=== PATIENT | female | born 1950 | race Caucasian/White ===

== ENCOUNTER 2017-02-08 09:20 | Outpatient (CLI) | payer MEDICARE, OTHER ==
[2017-02-08 12:30] LABS: BASOPHILS % (AUTO) 1.1 %; EOSINOPHILS # (AUTO) 0.1 10^3/uL (0.0-0.7); EOSINOPHILS % (AUTO) 3.1 %; HGB - HEMOGLOBIN 13.3 g/dL (12.0-16.0); LYMPHOCYTES # (AUTO) 1.6 10^3/uL (1.5-3.5); LYMPHOCYTES % (AUTO) 39.3 %; MEAN CORPUSCULAR HEMOGLOBIN 28.8 pg (27.0-31.0); MEAN CORPUSCULAR HGB CONC 33.3 g/dL (32.0-36.0); MEAN CORPUSCULAR VOLUME 86.7 fL (81.0-99.0); MEAN PLATELET VOLUME 8.8 fL (7.9-10.8); MONOCYTES # (AUTO) 0.3 10^3/uL (0.0-1.0); MONOCYTES % (AUTO) 7.4 %; NEUTROPHILS # (AUTO) 2.1 10^3/uL (1.5-6.6); NEUTROPHILS % (AUTO) 49.1 %; RED BLOOD COUNT 4.61 10^6/uL (4.20-5.40); RED CELL DISTRIBUTION WIDTH 14.8 % (12.0-15.0); UNCORRECTED WHITE BLOOD COUNT 4.2 x10^3/uL; WHITE BLOOD COUNT 4.2 x10^3/uL (4.8-10.8)
[2017-02-08 12:56] LABS: ALBUMIN/GLOBULIN RATIO 1.3 (1.0-2.2); BILIRUBIN,TOTAL 0.5 mg/dL (0.2-1.0); BUN - BLOOD UREA NITROGEN 17 mg/dL (6-20); CARBON DIOXIDE - CO2 31 mmol/L (21-32); CHLORIDE 105 mmol/L (101-111); CHOL/HDL RATIO 2.9 (<4.4); CHOLESTEROL 181 mg/dL; CREATININE 0.5 mg/dL (0.4-1.0); GFR - MDRD 123 (>89); GLUCOSE 92 mg/dL (70-100); HDL CHOLESTEROL 62 mg/dL; LDL/HDL RATIO 1.8 (<4.4); POTASSIUM 3.8 mmol/L (3.5-5.0); SODIUM 139 mmol/L (135-145); TRIGLYCERIDES 49 mg/dL; VLDL CHOLESTEROL 10 mg/dL
== END 2017-02-08 09:21 | disposition home or self-care (01) ==
LOC: LAB.WCP 09:20
PROVIDERS: ATTEND Family Medicine
DX: I10 Essential (primary) hypertension (principal); Z79.899 Other long term (current) drug therapy
CPT/HCPCS: 36415; 80053; 80061; 84443; 85025

== ENCOUNTER → 2017-11-01 | Outpatient (CLI) | payer MEDICARE, OTHER ==
[2017-11-01 19:07] LABS: BILIRUBIN,URINE NEGATIVE (NEGATIVE); GLUCOSE, URINE (UA) NEGATIVE (NEGATIVE); KETONES,URINE (UA) NEGATIVE (NEGATIVE); LEUKOCYTE ESTERASE, URINE NEGATIVE (NEGATIVE); NITRITE,URINE NEGATIVE (NEGATIVE); OCCULT BLOOD,URINE NEGATIVE (NEGATIVE); PH,URINE 5.5 PH (5.0-7.5); PROTEIN,URINE NEGATIVE (NEGATIVE); UROBILINOGEN,URINE 0.2 (NORMAL) E.U./dL (NORMAL)
[2017-11-01 19:12] LABS: CLARITY,URINE CLEAR (CLEAR)
[2017-11-01 19:37] LABS: BACTERIA,URINE None Seen /HPF (None Seen); RBC,URINE None Seen /HPF (0-5); SQUAMOUS EPITHELIAL CELL,UR NONE SEEN (<= Few)
== END ==
LOC: LAB.R 15:08
PROVIDERS: ATTEND Family Medicine
DX: N39.0 Urinary tract infection, site not specified (principal)
CPT/HCPCS: 81001; 87086

== ENCOUNTER 2018-03-02 09:50 | Emergency (ER) | payer MEDICARE, OTHER ==
--- NOTE | 2018-03-02 10:06 | ED Physician Documentation ---
PD HPI ABD PAIN - Stated complaint Stated Complaint: RT SIDE PX - Chief complaint Chief Complaint: Abd Pain - History obtained from History obtained from: Patient - History of Present Illness Timing - onset: Other (For the last week she has had intermittent right flank pain and its usually triggered by position changes or getting up to start to walk. When it happens it lasts for about 5 minutes, it is a nonradiating squeezing pain. Not associated with abdominal pain, new shortness of breath although she has chronic panic attacks or urinary complaints. No fevers.) Review of Systems Constitutional: denies: Fever, Chills GI: denies: Abdominal Pain, Nausea, Vomiting, Diarrhea : denies: Dysuria, Frequency Musculoskeletal: denies: Neck pain PD PAST MEDICAL HISTORY - Allergies Allergies/Adverse Reactions: Allergies Allergy/AdvReac Type Severity Reaction Status Date / Time No Known Drug Allergies Allergy Verified 03/02/18 10:02 PD ED PE NORMAL - Vitals Vital signs reviewed: Yes - General General: Alert and oriented X 3, No acute distress - Cardiac Cardiac: RRR, No murmur - Respiratory Respiratory: No respiratory distress, Clear bilaterally - Abdomen Abdomen: Normal bowel sounds, Soft, Non tender - Back Back: No spinal TTP - Derm Derm: Normal color, No rash - Extremities Extremities: Other (The patient has equal and normal Achilles and patellar reflexes bilaterally. Normal sensation in all areas of the legs. Patient denies saddle anesthesia. Normal strength in flexion-extension at the ankles, knees, and flexion of the hips.) - Neuro Neuro: Alert and oriented X 3, Normal speech Results - Vitals Vitals: Vital Signs - 24 hr 03/02/18 09:56 Temperature 36.7 C Heart Rate 68 Respiratory 14 Rate Blood Pressure 175/91 H O2 Saturation 98 Oxygen O2 Source Room air - Labs Labs: Laboratory Tests 03/02/18 03/02/18 03/02/18 10:37 10:37 10:37 WBC 5.0 RBC 4.75 Hgb 13.6 Hct 40.8 MCV 85.9 MCH 28.7 MCHC 33.4 RDW 14.6 Plt Count 241 MPV 8.0 Neut # (Auto) 2.6 Lymph # (Auto) 1.7 [place] # (Auto) 0.4 Eos # (Auto) 0.2 Baso # (Auto) 0.1 Absolute Nucleated RBC 0.00 Nucleated RBC % 0.1 Sodium 140 Potassium 3.8 Chloride 103 Carbon Dioxide 28 Anion Gap 9.0 BUN 14 Creatinine 0.5 Estimated GFR (MDRD) 123 Glucose 98 Calcium 9.0 Total Bilirubin 0.6 AST 24 ALT 25 Alkaline Phosphatase 93 Total Protein 7.2 Albumin 3.9 Globulin 3.3 Albumin/Globulin Ratio 1.2 Lipase 29 Urine Color YELLOW Urine Clarity CLEAR Urine pH 7.0 Ur Specific [place] <=1.005 Urine Protein NEGATIVE Urine Glucose (UA) NEGATIVE Urine Ketones NEGATIVE Urine Occult Blood TRACE-INTA Urine Nitrite NEGATIVE Urine Bilirubin NEGATIVE Urine Urobilinogen 0.2 (NORMAL) Ur Leukocyte Esterase NEGATIVE Ur Microscopic Review NOT INDICATED Urine Culture Comments NOT INDICATED PD MEDICAL DECISION MAKING - ED course ED course: This is a 67-year-old woman with right flank pain that seems musculoskeletal based on history. She has no physical exam findings. There is some incidental findings on the CT which were discussed with her in follow-up was advised but I do not think either of those are the source of her pain. She declined anything other than Motrin for pain. Departure - Departure Disposition: 01 Home, Self Care Clinical Impression: Right flank pain Condition: Good Record reviewed to determine appropriate education?: Yes Instructions: ED Abdominal Pain Unkn Cause Comments: As discussed, you do have a cyst in your kidney and a gallstone. I do not think either of those is the source of your pain to the area. You follow-up with your physician, they may want to order an ultrasound on your kidney to further assess the cyst but it does not look dangerous or concerning on our scan today. Your blood pressure was elevated today on check into the emergency department. This does not mean that you have hypertension, it is a common phenomenon to come to the emergency department and have elevated blood pressure. I recommend that you see your primary care physician within the week to have it rechecked when you are feeling better.
[2018-03-02 10:47] LABS: BASOPHILS # (AUTO) 0.1 10^3/uL (0.0-0.1); BASOPHILS % (AUTO) 1.4 %; EOSINOPHILS # (AUTO) 0.2 10^3/uL (0.0-0.7); EOSINOPHILS % (AUTO) 4.4 %; HGB - HEMOGLOBIN 13.6 g/dL (12.0-16.0); LYMPHOCYTES # (AUTO) 1.7 10^3/uL (1.5-3.5); LYMPHOCYTES % (AUTO) 33.2 %; MEAN CORPUSCULAR HEMOGLOBIN 28.7 pg (27.0-31.0); MEAN CORPUSCULAR HGB CONC 33.4 g/dL (32.0-36.0); MEAN CORPUSCULAR VOLUME 85.9 fL (81.0-99.0); MONOCYTES # (AUTO) 0.4 10^3/uL (0.0-1.0); NEUTROPHILS # (AUTO) 2.6 10^3/uL (1.5-6.6); PLT - PLATELET COUNT 241 10^3/uL (130-450); RED BLOOD COUNT 4.75 10^6/uL (4.20-5.40); RED CELL DISTRIBUTION WIDTH 14.6 % (12.0-15.0)
[2018-03-02 10:58] LABS: ALBUMIN 3.9 g/dL (3.2-5.5); ALBUMIN/GLOBULIN RATIO 1.2 (1.0-2.2); BILIRUBIN,TOTAL 0.6 mg/dL (0.2-1.0); CREATININE 0.5 mg/dL (0.4-1.0); TOTAL PROTEIN 7.2 g/dL (6.7-8.2)
--- NOTE | 2018-03-02 10:58 | CT Report ---
Reason: R flank pain Procedure Date: 03/02/2018 Accession Number: [id number] / [id number] Procedure: CT - Abdomen/Pelvis W/O CPT Code: FULL RESULT: EXAM: CT ABDOMEN AND PELVIS (CT KUB) EXAM DATE: 03/02/2018 10:27 AM. CLINICAL HISTORY: Right flank pain. COMPARISONS: None. TECHNIQUE: Routine axial helical CT imaging was performed through the abdomen and pelvis without IV contrast. Reconstructions: Coronal and sagittal. In accordance with CT protocol optimization, one or more of the following dose reduction techniques were utilized for this exam: automated exposure control, adjustment of mA and/or KV based on patient size, or use of iterative reconstructive technique. FINDINGS: Lung Bases: Unremarkable. Right Kidney/Ureter: There is a 2 cm exophytic right lower pole hypodense renal lesion, cyst versus angiomyolipoma. No stones, hydronephrosis, or hydroureter. No perinephric fat stranding. Left Kidney/Ureter: No stones, hydronephrosis, or hydroureter. No perinephric fat stranding. Other Solid Organs: Noncontrast images of the solid organs are grossly unremarkable. Gallbladder/Bile Ducts: Unremarkable. Peritoneal Cavity: No free fluid, free air or jl adenopathy. Bowel is grossly unremarkable. The appendix is normal. Pelvic Organs: No bladder stones or wall thickening. Noncontrast images of the visualized pelvic organs are unremarkable. Vasculature: Unremarkable. Other: None. IMPRESSION: No urinary tract stones or obstruction. Recommend retroperitoneal ultrasound of the right kidney on a routine outpatient basis to determine whether the hypodense lesion represents a simple cyst or possibly angiomyolipoma. RADIA
[2018-03-02 11:56] LABS: BILIRUBIN,URINE NEGATIVE (NEGATIVE); CLARITY,URINE CLEAR (CLEAR); GLUCOSE, URINE (UA) NEGATIVE (NEGATIVE); KETONES,URINE (UA) NEGATIVE (NEGATIVE); LEUKOCYTE ESTERASE, URINE NEGATIVE (NEGATIVE); NITRITE,URINE NEGATIVE (NEGATIVE); OCCULT BLOOD,URINE TRACE-INTA (NEGATIVE); PROTEIN,URINE NEGATIVE (NEGATIVE); UROBILINOGEN,URINE 0.2 (NORMAL) E.U./dL (NORMAL)
[2018-03-02 12:05] VITALS: BP 168/88
== END 2018-03-02 12:05 | disposition home or self-care (01) ==
LOC: ED 09:50
DX: R10.31 Right lower quadrant pain (principal); R03.0 Elevated blood-pressure reading, without diagnosis of hypertension
CPT/HCPCS: 36415; 74176; 80053; 81001; 81003; 83690; 85025; 87086; 99282; 99283

== ENCOUNTER 2018-06-13 08:00 | Outpatient (CLI) | payer MEDICARE, OTHER ==
[2018-06-13 12:24] LABS: BASOPHILS # (AUTO) 0.1 10^3/uL (0.0-0.1); BASOPHILS % (AUTO) 1.2 %; EOSINOPHILS # (AUTO) 0.1 10^3/uL (0.0-0.7); EOSINOPHILS % (AUTO) 3.3 %; HGB - HEMOGLOBIN 13.6 g/dL (12.0-16.0); LYMPHOCYTES # (AUTO) 1.4 10^3/uL (1.5-3.5); LYMPHOCYTES % (AUTO) 31.8 %; MEAN CORPUSCULAR HEMOGLOBIN 28.2 pg (27.0-31.0); MEAN CORPUSCULAR HGB CONC 32.8 g/dL (32.0-36.0); MEAN CORPUSCULAR VOLUME 85.9 fL (81.0-99.0); MEAN PLATELET VOLUME 8.7 fL (7.9-10.8); MONOCYTES # (AUTO) 0.3 10^3/uL (0.0-1.0); MONOCYTES % (AUTO) 7.2 %; NEUTROPHILS # (AUTO) 2.5 10^3/uL (1.5-6.6); NEUTROPHILS % (AUTO) 56.5 %; PLT - PLATELET COUNT 213 10^3/uL (130-450); RED BLOOD COUNT 4.84 10^6/uL (4.20-5.40); RED CELL DISTRIBUTION WIDTH 14.8 % (12.0-15.0); WHITE BLOOD COUNT 4.5 x10^3/uL (4.8-10.8)
[2018-06-13 13:12] LABS: ALBUMIN 3.8 g/dL (3.2-5.5); ALBUMIN/GLOBULIN RATIO 1.1 (1.0-2.2); ALKALINE PHOSPHATASE 84 IU/L (42-121); ALT ALANINE AMINOTRANSFERASE 26 IU/L (10-60); AST ASPARTATE AMINOTRANSFERASE 26 IU/L (10-42); BILIRUBIN,TOTAL 0.9 mg/dL (0.2-1.0); BUN - BLOOD UREA NITROGEN 15 mg/dL (6-20); CALCIUM 9.1 mg/dL (8.5-10.3); CARBON DIOXIDE - CO2 29 mmol/L (21-32); CHLORIDE 102 mmol/L (101-111); CHOL/HDL RATIO 2.8 (<4.4); CHOLESTEROL 185 mg/dL; CREATININE 0.5 mg/dL (0.4-1.0); GFR - MDRD 122 (>89); GLUCOSE 100 mg/dL (70-100); HDL CHOLESTEROL 65 mg/dL; LDL CHOLESTEROL,CALCULATED 111 mg/dL; LDL/HDL RATIO 1.7 (<4.4); SODIUM 139 mmol/L (135-145); TOTAL PROTEIN 7.2 g/dL (6.7-8.2); VLDL CHOLESTEROL 9 mg/dL
== END 2018-06-13 23:59 | disposition home or self-care (01) ==
LOC: LAB.WCP 08:00
PROVIDERS: ATTEND Family Medicine
DX: I10 Essential (primary) hypertension (principal); Z79.899 Other long term (current) drug therapy
CPT/HCPCS: 36415; 80053; 80061; 83721; 84443; 85025

== ENCOUNTER 2018-09-29 13:57 | Emergency (ER) | payer MEDICARE, OTHER ==
--- NOTE | 2018-09-29 14:08 | ED Physician Documentation ---
History of Present Illness - Stated complaint Stated Complaint: FACIAL NUMBNESS - Chief complaint Chief Complaint: Heent - History obtained from History obtained from: Patient - Additonal information Additional information: Patient is a 68-year-old female with history of hypertension although noncompliant with lisinopril presenting with upper lip and tip of nose numbness for the past several weeks without inciting incident, trauma, new medication, new exposure. Patient also has a sensation of her teeth feeling numb as if she received Novocain. Patient went to the dentist who reports no dental concerns. Patient denies other skin changes including rash, erythema, swelling, vesicles to the areas of numbness. Patient denies headache, vision changes, other areas of paresthesias or paralysis. Patient denies any pain with the numbness, as well as facial droop or change in speech. No other improving or worsening factors noted. Review of Systems Constitutional: denies: Fever Eyes: denies: Loss of vision Throat: reports: Dental pain / toothache Cardiac: denies: Chest pain / pressure Respiratory: denies: Dyspnea, Cough GI: denies: Abdominal Pain, Nausea, Vomiting, Diarrhea : denies: Dysuria Skin: denies: Rash Neurologic: reports: Numbness. denies: Focal weakness, Difficulty speaking, Headache PD PAST MEDICAL HISTORY - Past Medical History Past Medical History: Yes Cardiovascular: Hypertension - Past Surgical History Past Surgical History: No - Allergies Allergies/Adverse Reactions: Allergies Allergy/AdvReac Type Severity Reaction Status Date / Time No Known Drug Allergies Allergy Verified 09/29/18 14:05 - Social History Does the pt smoke?: No Smoking Status: Never smoker Does the pt drink ETOH?: Yes Does the pt have substance abuse?: No - Immunizations Immunizations are current?: Yes - POLST Patient has POLST: No PD ED PE NORMAL - Vitals Vital signs reviewed: Yes - General General: Alert and oriented X 3, No acute distress, Well developed/nourished - HEENT HEENT: Atraumatic, PERRL, EOMI (No nystagmus. Gross visual acuity intact.), Moist mucous membranes, Pharynx benign, Dentition benign - Neck Neck: Supple, no meningeal sign - Cardiac Cardiac: RRR, No murmur - Respiratory Respiratory: No respiratory distress, Clear bilaterally - Derm Derm: Normal color, Warm and dry, No rash - Extremities Extremities: No deformity, No tenderness to palpate - Neuro Neuro: Alert and oriented X 3, operator supply 2-12 intact, No motor deficit, No sensory deficit, Normal speech - Psych Psych: Normal mood, Normal affect Results - Vitals Vitals: Vital Signs - 24 hr 09/29/18 13:59 Temperature 36.2 C L Heart Rate 84 Respiratory 19 Rate Blood Pressure 159/80 H O2 Saturation 97 Oxygen O2 Source Room air - Labs Labs: Laboratory Tests 09/29/18 09/29/18 14:48 14:48 WBC 4.8 RBC 4.61 Hgb 13.3 Hct 41.1 MCV 89.2 MCH 28.9 MCHC 32.4 RDW 13.4 Plt Count 249 MPV 9.6 Neut # (Auto) 2.5 Lymph # (Auto) 1.6 [place] # (Auto) 0.4 Eos # (Auto) 0.2 Baso # (Auto) 0.0 Absolute Nucleated RBC 0.00 Nucleated RBC % 0.0 Sodium 141 Potassium 3.8 Chloride 101 Carbon Dioxide 29 Anion Gap 11.0 BUN 17 Creatinine 0.6 Estimated GFR (MDRD) 99 Glucose 109 H Calcium 9.1 Total Bilirubin 0.7 AST 23 ALT 21 Alkaline Phosphatase 84 Total Protein 7.1 Albumin 3.7 Globulin 3.4 Albumin/Globulin Ratio 1.1 Lipase 37 PD MEDICAL DECISION MAKING - ED course Complexity details: reviewed results, considered differential, d/w patient, d/w family ED course: Patient has history of hypertension and is noncompliant with medications. However, at this time do not think she is experiencing a emergent or urgent hypertensive crisis. Additionally have low suspicion for intracranial injury including bleeding, aneurysm, stroke, but obtain CT head to further evaluate, which returned without acute findings. No sign of Cooley's palsy or other motor component present. Patient complains of subjective numbness periorally, but none found on exam. She does not appear to be hyperventilating. No signs of rash or other skin abnormalities to indicate shingles, cellulitis, abscess. Patient has seen dentistry and determined to have no tooth involvement or underlying etiology. Patient denies other medications or exposures that could elicit this finding. Screening lab work obtained which returned relatively unremarkable. At this time, do not feel patient requires emergent consult or hospitalization, but advised on close primary care follow-up, supportive cares, and strict return precautions. Patient voiced understanding and is comfortable with discharge plan. Departure - Departure Disposition: 01 Home, Self Care Clinical Impression: Perioral numbness Condition: Good Instructions: ED Paraesthesias Follow-Up: Francy Nixon MD [Primary Care Provider] - Within 3 Days Comments: Recommend follow-up with primary care physician in next 2 to 3 days. Return to ED sooner if experience worsening symptoms or have other concerns.
--- NOTE | 2018-09-29 14:38 | CT Report ---
Reason: upper lip and nose numbess without other deficit Procedure Date: 09/29/2018 Accession Number: [id number] / [id number] Procedure: CT - HEAD WO CPT Code: FULL RESULT: EXAM: CT HEAD EXAM DATE: 09/29/2018 02:26 PM. CLINICAL HISTORY: 68-year-old woman with numbness of the upper lip and nose. COMPARISON: None. TECHNIQUE: Multiaxial CT images were obtained from the foramen magnum to the vertex. Reformats: Sagittal and coronal. IV contrast: None. In accordance with CT protocol optimization, one or more of the following dose reduction techniques were utilized for this exam: automated exposure control, adjustment of mA and/or KV based on patient size, or use of iterative reconstructive technique. FINDINGS: Parenchyma: No evidence of acute infarct, hemorrhage, or mass lesion. Parenchyma demonstrates minimal periventricular hypoattenuation, a common finding in this age group. Ventricles and Extra-axial Spaces: Ventricles are symmetric and normal in size. No extra-axial hemorrhage or fluid collection. Orbits: Unremarkable. Sinuses: Paranasal sinuses and mastoid air cells are clear. Extracranial Soft Tissues and Bones: Soft tissues are unremarkable. No fractures. IMPRESSION: 1. No acute intracranial abnormality. Specifically, no evidence of acute infarct, hemorrhage, or mass lesion. RADIA
[2018-09-29 15:01] LABS: BASOPHILS % (AUTO) 0.8 %; EOSINOPHILS # (AUTO) 0.2 10^3/uL (0.0-0.7); EOSINOPHILS % (AUTO) 4.6 %; HGB - HEMOGLOBIN 13.3 g/dL (12.0-16.0); LYMPHOCYTES # (AUTO) 1.6 10^3/uL (1.5-3.5); LYMPHOCYTES % (AUTO) 34.5 %; MEAN CORPUSCULAR HEMOGLOBIN 28.9 pg (27.0-31.0); MEAN CORPUSCULAR HGB CONC 32.4 g/dL (32.0-36.0); MEAN CORPUSCULAR VOLUME 89.2 fL (81.0-99.0); MEAN PLATELET VOLUME 9.6 fL (7.9-10.8); MONOCYTES # (AUTO) 0.4 10^3/uL (0.0-1.0); MONOCYTES % (AUTO) 7.4 %; NEUTROPHILS # (AUTO) 2.5 10^3/uL (1.5-6.6); NEUTROPHILS % (AUTO) 52.5 %; PLT - PLATELET COUNT 249 10^3/uL (130-450); RED BLOOD COUNT 4.61 10^6/uL (4.20-5.40); RED CELL DISTRIBUTION WIDTH 13.4 % (12.0-15.0); WHITE BLOOD COUNT 4.8 x10^3/uL (4.8-10.8)
[2018-09-29 15:08] LABS: CALCIUM 9.1 mg/dL (8.5-10.3); CREATININE 0.6 mg/dL (0.4-1.0)
[2018-09-29 15:09] LABS: ALBUMIN 3.7 g/dL (3.2-5.5); ALBUMIN/GLOBULIN RATIO 1.1 (1.0-2.2); BILIRUBIN,TOTAL 0.7 mg/dL (0.2-1.0); TOTAL PROTEIN 7.1 g/dL (6.7-8.2)
[2018-09-29 16:01] VITALS: BP 159/93
== END 2018-09-29 15:59 | disposition home or self-care (01) ==
LOC: ED 13:57
DX: R20.0 Anesthesia of skin (principal); I10 Essential (primary) hypertension; Z91.14 Patient's other noncompliance with medication regimen
CPT/HCPCS: 36415; 70450; 80053; 83690; 85025; 99282; 99284

== ENCOUNTER 2018-10-24 08:48 | Outpatient (CLI) | payer MEDICARE, OTHER ==
[2018-10-24] MEDS ORDERED: GADOBUTROL 10 MMOL/10 ML VIAL ONE (09:08)
[2018-10-24] MEDS ORDERED: GADOBUTROL 10 MMOL/10 ML VIAL IVP ONE (10:42)
--- NOTE | 2018-10-24 10:53 | MRI Report ---
Reason: FACIAL NUMBNESS, HTN Procedure Date: 10/24/2018 Accession Number: [id number] / [id number] Procedure: MRI - Angio Brain W/O (MRA) CPT Code: FULL RESULT: EXAM MRA BRAIN EXAM DATE: 10/24/2018 09:40 AM. CLINICAL HISTORY: 68-year-old woman with facial numbness and history of hypertension. COMPARISON: HEAD W/O 09/29/2018 2:24 PM. TECHNIQUE: Multiplanar, multisequence MRA sequences of the brain were performed. Other: None. Post-processing: Multiplanar 3D MIP reconstructions. IV Contrast: None. FINDINGS: RIGHT: - Visualized Internal Carotid: Patent without significant stenosis or aneurysm. - Anterior Cerebral: Patent without significant stenosis or aneurysm. - Middle Cerebral: Patent without significant stenosis or aneurysm. - Posterior Cerebral: Patent without significant stenosis or aneurysm. - Posterior Communicating: Not well seen. - Visualized Vertebral: Patent without significant stenosis or dissection. The right vertebral artery is dominant. LEFT: - Visualized Internal Carotid: Patent without significant stenosis or aneurysm. - Anterior Cerebral: Patent without significant stenosis or aneurysm. - Middle Cerebral: Patent without significant stenosis or aneurysm. - Posterior Cerebral: Patent without significant stenosis or aneurysm. - Posterior Communicating: Not well seen. - Visualized Vertebral: Patent without significant stenosis or dissection. CENTRAL: - Anterior Communicating: Patent. No aneurysm. - Basilar: Patent without significant stenosis, dissection, or aneurysm. IMPRESSION: 1. Normal brain MRA. No significant vascular stenosis or aneurysm. RADIA
--- NOTE | 2018-10-24 13:37 | MRI Report ---
Reason: FACIAL NUMBNESS, HTN Procedure Date: 10/24/2018 Accession Number: [id number] / [id number] Procedure: MRI - Brain W/WO CPT Code: FULL RESULT: EXAM: MRI BRAIN WITHOUT AND WITH CONTRAST EXAM DATE: 10/24/2018 09:39 AM. CLINICAL HISTORY: Facial paresthesias and numbness. COMPARISON: No prior brain MRI. TECHNIQUE: Multiplanar, multisequence T1-weighted and fluid-sensitive MR sequences of the brain were performed. Sequences optimized for brain and IAC/posterior fossa evaluation. Other: None. IV Contrast: 9 mL Gadavist. FINDINGS: Brain Volume: Normal for age. Parenchyma: No restricted diffusion to suggest acute or recent ischemic infarct. No cerebral hemorrhage, mass effect, midline shift or abnormal subdural fluid collection. There are a few small scattered patchy and nodular foci of deep white matter T2 hyperintensity in both cerebral hemispheres. These are nonspecific findings likely attributable to aging and mild chronic microangiopathy. No abnormal enhancement. Ventricles/Cisterns: No hydrocephalus. No abnormal extra-axial fluid collection or hemorrhage. Orbits: Symmetric and unremarkable. [place]: The pituitary gland, cavernous sinuses, suprasellar cistern and optic chiasm are unremarkable. IAC: No enhancing or space-occupying mass in the regions of the internal auditory canals, cerebellopontine angle cisterns or elsewhere in the posterior fossa. Fluid signal within the inner ear structures is present bilaterally as expected. Unremarkable contours of the canalicular and cisternal segments of the 7th and 8th cranial nerves. Unremarkable appearance of Meckel's caves which appear symmetric. Unremarkable appearance of the cisternal segments of both trigeminal nerves. Vasculature: Normal signal flow void is seen in the major arterial structures at the skull base. The dural sinuses are patent and enhance normally. Sinuses: Minimal nonspecific maxillary and ethmoid mucosal thickening. No air-fluid level or opacification. Bones: No focal pathologic appearing marrow signal changes. Other: None. IMPRESSION: 1. Unremarkable findings in the posterior fossa, no evidence for cranial nerve cisternal segment compression, abnormal enhancement or space-occupying mass. 2. No other evidence of acute abnormality or enhancing mass. 3. Mild nonspecific white matter T2 hyperintense signal changes likely attributable to aging and mild chronic microangiopathy. 4. Minimal nonspecific paranasal sinus mucosal thickening. RADIA
--- NOTE | 2018-10-24 14:12 | MRI Report ---
Reason: FACIAL NUMBNESS, HTN Procedure Date: 10/24/2018 Accession Number: [id number] / [id number] Procedure: MRI - Angio Neck W/WO (MRA) CPT Code: FULL RESULT: EXAM: MR ANGIOGRAM NECK EXAM DATE: 10/24/2018 10:21 AM. CLINICAL HISTORY: Facial paresthesias and numbness. Hypertension. COMPARISON: None. TECHNIQUE: Multiplanar, multisequence MRA sequences of the neck were performed. Other: None. Post-processing: Multiplanar 3D MIP reconstructions. IV Contrast: 9 mL Gadavist. Evaluation of arterial stenosis is based on a NASCET method of measurement. FINDINGS: RIGHT The top of the aortic arch and the origins of the great vessels are patent. No proximal flow limiting subclavian artery stenosis. 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 Minimal stenosis of the proximal left vertebral artery V1 segment, this does not appear flow-limiting. Otherwise patent well-developed bilateral cervical vertebral arteries, the right appears to be dominant. Minimal stenosis and irregularity in both the cervical carotid bifurcations likely secondary to atherosclerosis. Stenosis at the cervical carotid bifurcations and at the internal carotid artery origins bilaterally does not appear flow-limiting. No evidence for acute vertebral or carotid artery dissection. No evidence for intracranial or vertebrobasilar insufficiency. IMPRESSION: 1. Mild cervical carotid artery stenosis, this does not, however, appear to be hemodynamically significant. 2. Probable minimal stenosis near the origin of the nondominant left cervical vertebral artery, unlikely to be acute or flow-limiting. RADIA
== END 2018-10-24 08:49 | disposition home or self-care (01) ==
LOC: DI 08:48
PROVIDERS: ATTEND Physician Assistant
DX: R20.2 Paresthesia of skin (principal); I65.23 Occlusion and stenosis of bilateral carotid arteries
CPT/HCPCS: 70549; 70553; A9585; 70544

== ENCOUNTER 2018-11-29 11:13 | Outpatient (CLI) | payer MEDICARE, OTHER ==
--- NOTE | 2018-11-30 09:38 | Mammography Report ---
Reason: SCREENING MAMMO Procedure Date: 11/29/2018 Accession Number: [id number] / [id number] Procedure: [facility] - Screening Mammo w/[facility] CPT Code: FULL RESULT: EXAM: Screening Mammo w/[facility] DATE: 11/29/2018 1:23 PM CLINICAL HISTORY: Screening encounter. History of early menses. History of benign right breast biopsy. Family history of breast cancer in the mother at the age of 88. TECHNIQUE: (B) - Bilateral CC and MLO views were obtained. COMPARISON: 11/29/2015 through 08/29/2009. PARENCHYMAL PATTERN: (F) - The breast(s) demonstrate(s) diffuse fatty replacement. FINDINGS: There are coarse typically benign calcifications. There are no suspicious masses, calcifications, or areas of distortion. IMPRESSION: Benign findings. BI-RADS category 2. RECOMMENDATION: (ANNUAL) - Recommend routine annual screening mammography. BI-RADS CATEGORY: (2) - Benign Findings. STANDARD QUALIFYING STATEMENTS: 1. This examination was not reviewed with the aid of Computer-Aided Detection (CAD). 2. A negative or benign imaging report should not preclude biopsy if clinically suspicious findings are present. 3. Dense breasts may obscure an underlying neoplasm. 4. This examination was reviewed with the aid of 3D breast imaging (tomosynthesis).
== END 2018-11-29 11:14 | disposition home or self-care (01) ==
LOC: DI 11:13
DX: Z12.31 Encounter for screening mammogram for malignant neoplasm of breast (principal); Z80.3 Family history of malignant neoplasm of breast
CPT/HCPCS: 77063; 77067

== ENCOUNTER 2018-12-05 11:03 | Outpatient (CLI) | payer MEDICARE, OTHER ==
--- NOTE | 2018-12-05 12:55 | SLEEP CARE CONSULTATION ---
Information from patient questionnaire entered by Pattie Cardozo. I have reviewed and concur with the information entered by Pattie Cardozo. This document represents the service I personally performed and the decisions made by me, Nicolle Marie MD, [facility]. History of Present Illness Reason for Visit: New patient (W) Duration of Symptoms: 15 YEARS Usual bedtime: 1502-1732 Snores at night: Yes Observed to quit breathing while asleep: Yes Sleeps alone due to snoring: Yes Number of times waking at night: 1 Reasons for waking at night: reports: Bathroom Toss, Turn, or Twitch while sleeping: Yes Recalls having dreams: Yes Usually gets out of bed at: 0600 Feels refreshed in the morning: Yes Morning headache: No Sleepy or fatigued during the day: No Ever fallen asleep while driving: No Takes day naps: No Dreams during day naps: No Prior sleep studies: No Additional HPI information: I had the pleasure of seeing Ms. Valdivia today regarding the possibility of her have a sleep disorder. As you know, she is a 68 year old lady who reports snoring loudly all her adult life. The patient tells me that she normally goes to bed around 10 - 11 pm, and it takes her approximately just a few minutes to fall asleep. She has been told that she snores loudly and irregularly at night. She has also been observed to stop breathing in her sleep. Her spouse sleeps in the same bed. She can recall waking up on the average of 1 - 2 times during the night. Most of the time she wakes up because of having to use the bathroom. She has never awakened because of her own snoring, choking, or having to gasp for air. There is not a lot of tossing and turning in her sleep. No somniloquy (sleep talking) or somnambulism (sleep walking). Generally she can recall having dreams. In the morning she usually gets up out of the bed around 6 a.m. not feeling refreshed nor rested. She usually does not have a morning headache. During the day she does not feel sleepy and fatigued. Her score on [place] Sleepiness Scale is 9 out of 24. She has never fallen asleep while driving nor has had any accident due to sleepiness. She usually does not take naps during the day. Upon falling asleep during the day she denies having vivid dreams. She has never had sleep paralysis, experienced cataplexy or symptoms of restless leg syndrome. She reports having impaired concentration during the day. Subjective Initial [place] Sleepiness Scale score: 9 Past Medical History Past Medical History: reports: Hypertension, Other (OVERWEIGHT) Social History The patient's occupation is RETIRED. Patient is and lives in [place]. Have you smoked in the past 12 months: No Alcohol use: No Caffeine use: Yes Caffeine amount and frequency: 2 CUPS/DAY Family History Family history of sleep disordered breathing: Yes Family Hx Sleep Apnea: Sibling: Snoring Allergies and Home Medications Drug allergies reviewed: Yes Home medication list reviewed: Yes Review of Systems Cardiovascular: reports: high blood pressure, leg or foot swelling Respiratory: denies: shortness of breath, wheeze, sputum production, chronic cough, other Gastrointestinal: denies: heartburn, difficulty swallowing, nausea, vomitting, diarrhea, abdominal pain, other Urinary: denies: incontinence, frequency, urgency, impotence, other Neurological: denies: headaches, seizure, head trauma, disorientation, speech dysfunction, gait or balance problems, fainting or unconsciousness, other Psychiatric: denies: Attention Deficit Hyperactivity, anxiety, depression, mood disorder, claustrophobia, other Ear/Nose/Throat: denies: nasal congestion, sinus problems, nose bleeds, dry mouth/throat, hoarseness, injury to nose, tonsillectomy, wisdom teeth removed, other Endocrine: denies: thyroid disease, history of goiter, sluggishness, too hot or cold, excessive thirst, increased appetite, increased urination, unexplained weakness, other Musculoskeletal: denies: joint pain, neck pain, back pain, joint swelling, muscle pain or cramping, mobility problems, other Immunologic: denies: sneezing, rash, itching, allergies to food or environment, other Physical Exam Vital signs obtained and entered by: Dr. Nicolle Marie Blood Pressure: 127/70 Heart Rate: 67 O2 Saturation: 97 Height: 5 ft 1 in Weight: 204 lb Body Mass Index: 38.5 BMI Classification: Obesity Class 2 Neck circumference: 15 Mood/affect: normal HEENT: No craniofacial malformation Nostrils: patent to airflow Turbinates: normal Septum: midline Mouth and throat: narrow oropharynx Soft palate: long Hard palate: normal Uvula: normal Uvula visualization: 25% Mallampati Class III Tongue: enlarged in size with teeth matias on lateral edges Tonsils: small Chin and jaw: normal size and position Neck: normal w/o lymphadenopathy or thyromegaly Heart: regular rate and rhythm Lungs: clear bilaterally Abdomen: soft Extremities: no edema or clubbing Neurologic: intact Impression and Plan IMPRESSION: 1. Obstructive Sleep Apnea-Hypopnea Syndrome, as suggested by history of loud and irregular snoring, observed cessation of breath while asleep. Interestingly, she does not have much of any symptoms. Narrow oropharynx and obesity are common predisposing factors for obstructive sleep apnea-hypopnea syndrome. Pathophysiology of sleep-disordered breathing was discussed. Untreated obstructive sleep apnea can also cause hypertension. I recommend proceeding to polysomnography to confirm the diagnosis and to assess severity. If he has significant sleep disordered breathing, a manual CPAP titration study will also be performed to find the optimal treatment pressure. I informed the patient of what the sleep studies involve and after some discussion, she agreed to proceed. Plan: 1. Schedule polysomnography + manual CPAP titration study and return in 1 to 2 weeks after the study to discuss result and initiate therapy. 2. Avoid long distance driving or when feeling sleepy. 3. Avoid alcohol, sedative and muscle relaxant around bedtime. 4. Attempt to lose weight. I spent 100% of this 15 minute visit face to face with the patient with greater than 50% of this was spent time counseling the patient and coordination of care.
[2018-12-05 12:56] VITALS: BP 127/70
== END 2018-12-05 11:04 | disposition home or self-care (01) ==
LOC: SC 11:03
PROVIDERS: ATTEND Internal Medicine Pulmonary Disease
DX: R06.81 Apnea, not elsewhere classified (principal); R06.83 Snoring; E66.9 Obesity, unspecified; Z68.38 Body mass index [BMI] 38.0-38.9, adult
CPT/HCPCS: 99203; G0463; 99212

== ENCOUNTER 2018-12-22 19:36 | Outpatient (CLI) | payer MEDICARE, OTHER | END 2018-12-22 19:37 | disposition home or self-care (01) | LOC: SC 19:36 | PROVIDERS: ATTEND Internal Medicine Pulmonary Disease | DX: G47.33 Obstructive sleep apnea (adult) (pediatric) (principal); I49.8 Other specified cardiac arrhythmias; E66.9 Obesity, unspecified; Z68.38 Body mass index [BMI] 38.0-38.9, adult | CPT/HCPCS: 95810 ==

== ENCOUNTER 2019-01-04 16:10 | Outpatient (CLI) | payer MEDICARE, OTHER ==
[2019-01-04 18:05] VITALS: BP 120/72
--- NOTE | 2019-01-04 18:05 | SLEEP CARE CONSULTATION ---
Information from patient questionnaire entered by Bonita Baldwin. I have reviewed and concur with the information entered by Bonita Baldwin. This document represents the service I personally performed and the decisions made by me, Carley Schneider, RN, MSN, ENGINEERING WRITER. History of Present Illness Initial [place] Sleepiness Scale score: 9 Current [place] Sleepiness Scale score: 5 Additional HPI information: JEVON PATTERSON returns for follow up of the recently performed polysomnography and informed of findings. I explained the pathophysiology behind obstructive sleep apnea. We then spent quite a bit of time discussing different treatment options. For mild obstructive sleep apnea, surgery and oral appliance are alternatives to nasal CPAP therapy but in moderate or severe cases, nasal CPAP is the most effective and reliable treatment. I reviewed the impact of weight changes on sleep apnea and strongly recommended losing weight. After some discussion, the patient opted to go with the nasal CPAP therapy. Nasal autoCPAP set at [id number] will be ordered with rationale explained until a manual titration study can be ordered if unable to find optimal pressure due to severity of apnea and hypoxia. I explained how CPAP machine works with sample devices [employer] Dreamstation and [employer] [id number] and what to expect when using the machine. Using CPAP every night in order to get used to it was emphasized. Patient advised to put CPAP mask on before getting into bed so as not to fall asleep without CPAP. To assist acclimation to CPAP use, it could also be used for a short time during day while reading or watching TV. The patient was instructed to call the CPAP supplier to discuss any mechanical problem that may occur. If the mask given is uncomfortable or is difficult to keep on through the night even with adjustment, contact the CPAP supplier as many will replace with another mask style if notified before 30 days. If snoring or perceives is not getting enough air or too much air from the machine, notify this office. [facility] patient education PAP tips pamphlets reviewed and given to patient. Patient counseled not drink alcohol less than 4 hours before bedtime as it can increase snoring and apnea. Patient does not drink alcohol. Patient was cautioned about risks of drowsy driving until sleepiness symptoms resolve. Patient denies drowsy driving. [facility] patient education on snoring and sleep apnea given and reviewed. Sleep Study - Polysomnography Polysomnography findings: The quality of the study is good. The patient had normal sleep efficiency. Despite moderate sleep fragmentation,, the sleep architecture was normal as well. Respiratory monitoring showed severe obstructive sleep apnea-hypopnea (AHI = 42.3) associated with frequent arousals, oxyhemoglobin desaturation and severe hypoxia (juaquin oxygen saturation of 53%). Baseline oxygen saturation was normal. The respiratory events occurred occasional (supine AHI = 59.4; non-supine = 33.50). Snore was loud in intensity. There was no periodic leg movement of sleep. Cardiac rhythm was normal sinus rhythm sinus arrhythmia and premature atrial contractions. No abnormal behavior (parasomnia) observed during the night. Allergies and Home Medications Known drug allergies: No Home medication list reviewed: Yes Allergy and home medication list: lisinopril 10mg daily multivitamin daily CoQ10 daily Thyroid booster daily Vitamin D daily Probiotic daily Review of Systems Review of systems same as previous: Yes Physical Exam Blood Pressure: 120/72 Heart Rate: 67 O2 Saturation: 97 Height: 5 ft 0.5 in Weight: 197 lb 9.6 oz Body Mass Index: 37.9 BMI Classification: Obesity Class 2 Impression and Plan 1. Obstructive Sleep Apnea-Hypopnea Syndrome, severe, with lowest oxygen saturat ion of 53%. Obviously this is the cause of the patients symptoms of unrefreshed sleep. Positive pressure therapy could benefit hypertension. As mentioned above, the patient will be started on nasal autoCPAP therapy with pressure set at 4-15 cmH2O until a manual titration study can be completed. Compliance guidelines also reviewed and a copy of compliance guidelines was also given for reference. In addition, I gave her a copy of the DME's that can be used. I will have my community outreach coordinator give her a call tomorrow to discuss the differences in more detail as she was gone for the day. Because the apnea is more severe supine, I instructed to avoid sleeping supine using pillow positioning until able to start CPAP use. Due to severity of apnea and hypoxia, I will order an urgent set up 2. Sinus arrhythmia with frequent premature contractions. Patient advised to follow up with PCP for further evaluation and treatment as indicated. I discussed the importance of evaluating arrhythmia to see if treatment indicated as some arrhythmias can increase risk of heart attack and stroke. A copy of tracing attached to report. * Nasal auto CPAP therapy, pressure at 4-15 cm H2O. * Schedule manual titration study. * Attempt to lose weight. * Avoid alcohol consumption near bedtime. * Avoid supine sleep until using CPAP. * The patient is again cautioned about driving until sleepiness completely resolves. * Follow up with PCP for further evaluation of arrhythmia * Copy of tracing attached of arrhythmia * Return one month after CPAP obtained. I will assess response to therapy and compliance at that time. I spent 100% of this 50 minute visit face to face with the patient with greater than 50% of this was spent time counseling the patient and coordination of care and answering questions about apnea and CPAP treatment.
== END 2019-01-04 16:11 | disposition home or self-care (01) ==
LOC: SC 16:10
PROVIDERS: ATTEND Nurse Practitioner Family
DX: G47.33 Obstructive sleep apnea (adult) (pediatric) (principal); I49.1 Atrial premature depolarization; E66.9 Obesity, unspecified; Z68.37 Body mass index [BMI] 37.0-37.9, adult
CPT/HCPCS: 99212; 99215

== ENCOUNTER 2019-01-20 15:19 | Emergency (ER) | payer MEDICARE, OTHER ==
[2019-01-20 16:12] LABS: BASOPHILS # (AUTO) 0.1 10^3/uL (0.0-0.1); EOSINOPHILS # (AUTO) 0.2 10^3/uL (0.0-0.7); EOSINOPHILS % (AUTO) 3.6 %; HGB - HEMOGLOBIN 12.9 g/dL (12.0-16.0); LYMPHOCYTES # (AUTO) 1.8 10^3/uL (1.5-3.5); LYMPHOCYTES % (AUTO) 35.1 %; MEAN CORPUSCULAR HEMOGLOBIN 28.4 pg (27.0-31.0); MEAN CORPUSCULAR HGB CONC 31.6 g/dL (32.0-36.0); MEAN CORPUSCULAR VOLUME 89.7 fL (81.0-99.0); MEAN PLATELET VOLUME 9.6 fL (7.9-10.8); MONOCYTES # (AUTO) 0.4 10^3/uL (0.0-1.0); MONOCYTES % (AUTO) 7.3 %; NEUTROPHILS # (AUTO) 2.8 10^3/uL (1.5-6.6); NEUTROPHILS % (AUTO) 52.8 %; PLT - PLATELET COUNT 254 10^3/uL (130-450); RED BLOOD COUNT 4.55 10^6/uL (4.20-5.40); RED CELL DISTRIBUTION WIDTH 14.1 % (12.0-15.0); WHITE BLOOD COUNT 5.2 x10^3/uL (4.8-10.8)
[2019-01-20] MEDS ORDERED: IBUPROFEN 600 MG TABLET PO STA (16:15)
--- NOTE | 2019-01-20 16:16 | ED Physician Documentation ---
History of Present Illness - Stated complaint Stated Complaint: LT ARM/SHOULDER PAIN - Chief complaint Chief Complaint: General - History obtained from History obtained from: Patient - History of Present Illness Timing: Yesterday (Since yesterday she has had a deep aching left arm pain in the bicep and humeral area. It is not associated with any injury and not motion related. Its been fairly constant but does resolve for several hours if she takes ibuprofen and she slept okay through the night after taking Motrin p.m. There is no associated chest pain or trouble breathing. No history of heart issues. She does have a history of hypertension.) Review of Systems Ten Systems: 10 systems reviewed and negative Constitutional: denies: Fever, Chills Cardiac: denies: Chest pain / pressure, Palpitations Respiratory: denies: Dyspnea, Cough PD PAST MEDICAL HISTORY - Past Medical History Cardiovascular: Hypertension - Past Surgical History Past Surgical History: No - Allergies Allergies/Adverse Reactions: Allergies Allergy/AdvReac Type Severity Reaction Status Date / Time No Known Drug Allergies Allergy Verified 01/20/19 15:28 - Social History Does the pt smoke?: No Smoking Status: Never smoker Does the pt drink ETOH?: Yes Does the pt have substance abuse?: No - Immunizations Immunizations are current?: Yes - POLST Patient has POLST: No PD ED PE NORMAL - Vitals Vital signs reviewed: Yes - General General: Alert and oriented X 3, No acute distress - HEENT HEENT: PERRL, EOMI - Neck Neck: Supple, no meningeal sign, No bony TTP - Cardiac Cardiac: RRR, No murmur - Respiratory Respiratory: No respiratory distress, Clear bilaterally - Abdomen Abdomen: Non tender - Extremities Extremities: Other (The left upper extreme and he has full range of motion, is nontender, and has equal radial pulses.) - Neuro Neuro: Alert and oriented X 3, Normal speech Results - Vitals Vitals: Vital Signs - 24 hr 01/20/19 01/20/19 15:28 16:30 Temperature 36.5 C Heart Rate 58 L 77 Respiratory 16 18 Rate Blood Pressure 173/74 H 169/84 H O2 Saturation 98 96 Oxygen O2 Source Room air - EKG (time done) 154 Rate: Rate (enter#) Rhythm: NSR QRS: LVH, Low voltage Ischemia: Normal ST segments Computer interpretation: Agree with computer - Labs Labs: Laboratory Tests 01/20/19 01/20/19 01/20/19 16:05 16:05 16:05 WBC 5.2 RBC 4.55 Hgb 12.9 Hct 40.8 MCV 89.7 MCH 28.4 MCHC 31.6 L RDW 14.1 Plt Count 254 MPV 9.6 Neut # (Auto) 2.8 Lymph # (Auto) 1.8 [place] # (Auto) 0.4 Eos # (Auto) 0.2 Baso # (Auto) 0.1 Absolute Nucleated RBC 0.00 Nucleated RBC % 0.0 Sodium 140 Potassium 3.7 Chloride 101 Carbon Dioxide 31 Anion Gap 8.0 BUN 13 Creatinine 0.6 Estimated GFR (MDRD) 99 Glucose 99 Calcium 9.1 Total Bilirubin 0.7 AST 24 ALT 25 Alkaline Phosphatase 89 Troponin I High Sens 3.1 Total Protein 7.2 Albumin 4.1 Globulin 3.1 Albumin/Globulin Ratio 1.3 Lipase 34 - Rads (name of study) CXR Radiology: EMP read contemporaneously (Right lower lobe nodular density, the follow-up suggested) PD MEDICAL DECISION MAKING - ED course ED course: 68-year-old woman with some atypical left arm pain that does not really fit a musculoskeletal etiology and as such a coronary work-up was undertaken with negative results for ACS. Given the time course a single troponin is productive. Departure - Departure Disposition: 01 Home, Self Care Clinical Impression: Left arm pain Condition: Good Record reviewed to determine appropriate education?: Yes Instructions: ED Acute Pain [facility] Comments: Your heart work-up today is negative, you do have a little bit of scarring or something at the bottom of the right lung on chest x-ray, repeat chest x-ray in about 4 weeks is recommended. Return for new worsening symptoms, follow-up with your doctor for said chest x-ray continue ibuprofen up to 800 mg 3 times a day as needed for the pain.
--- NOTE | 2019-01-20 16:20 | XRAY Report ---
Reason: chest pain Procedure Date: 01/20/2019 Accession Number: [id number] / [id number] Procedure: XR - Chest 1 View X-Ray CPT Code: 80488 Final Report FULL RESULT: EXAM: CHEST RADIOGRAPHY EXAM DATE: 01/20/2019 03:56 PM. CLINICAL HISTORY: Chest pain. COMPARISON: None. TECHNIQUE: 1 view. FINDINGS: Lungs/Pleura: Indeterminate nodular opacity projects the right lower lobe. Central bronchial wall thickening is seen. No other focal consolidation. No pleural effusion or pneumothorax. Mediastinum: Within exam limitations, the cardiomediastinal contour is normal. Other: None. IMPRESSION: 1. Indeterminate nodular opacity projects over the right lower lobe. Suggest short interval follow-up radiograph to assess for resolution. 2. Otherwise no evidence for acute cardiopulmonary process. RAD[facility]
[2019-01-20 16:27] LABS: ALBUMIN 4.1 g/dL (3.2-5.5); ALBUMIN/GLOBULIN RATIO 1.3 (1.0-2.2); BILIRUBIN,TOTAL 0.7 mg/dL (0.2-1.0); CALCIUM 9.1 mg/dL (8.5-10.3); CREATININE 0.6 mg/dL (0.4-1.0); TOTAL PROTEIN 7.2 g/dL (6.7-8.2)
[2019-01-20 16:31] VITALS: BP 169/84
== END 2019-01-20 17:09 | disposition home or self-care (01) ==
LOC: ED 15:19
DX: M79.622 Pain in left upper arm (principal); R91.8 Other nonspecific abnormal finding of lung field; I10 Essential (primary) hypertension
CPT/HCPCS: 36415; 71045; 80053; 83690; 84484; 85025; 93005; 99284; A9270

== ENCOUNTER 2019-02-24 08:00 | Outpatient (CLI) | payer MEDICARE, OTHER | END 2019-02-24 23:59 | disposition home or self-care (01) | LOC: LAB.R 08:00 | PROVIDERS: ATTEND Physician Assistant | DX: R35.0 Frequency of micturition (principal) | CPT/HCPCS: 87086; 87181 ==

== ENCOUNTER 2019-03-05 20:37 | Outpatient (CLI) | payer MEDICARE, OTHER | END 2019-03-05 20:38 | disposition home or self-care (01) | LOC: SC 20:37 | PROVIDERS: ATTEND Internal Medicine Pulmonary Disease | DX: G47.33 Obstructive sleep apnea (adult) (pediatric) (principal); E66.9 Obesity, unspecified; Z68.38 Body mass index [BMI] 38.0-38.9, adult | CPT/HCPCS: 95811 ==

== ENCOUNTER 2019-04-11 12:47 | Outpatient (CLI) | payer MEDICARE, OTHER ==
--- NOTE | 2019-04-11 13:43 | SLEEP CARE CONSULTATION ---
Information from patient questionnaire entered by Pattie Cardozo. I have reviewed and concur with the information entered by Pattie Cardozo. This document represents the service I personally performed and the decisions made by me, Carley Schneider, RN, MSN, BAR [employer]ACKER SEWING MACHINE. History of Present Illness Previous diagnosis: Severe, Obstructive Sleep Apnea-Hypopnea Syndrome AHI: 42.3 Reason for follow up: with manual titration Equipment type: [facility]AP [facility] Prior sleep studies: Yes HPI additional information: Took her CPAP to [facility] to use but the electric adaptors she took as well as the hotel gave got hot so she was afraid to use her CPAP as her hot curlers melted with this use of the adaptor. She also has noted itching of her upper chest area just below neck of about 4 inches but no rash noted except scratch matias. This started in sometime in February after starting CPAP and resolved when unable to use CPAP in [facility]. The itching returned with use of CPAP once home. This is where the air vents from her mask. She was given a new mask style at sleep study that has a different venting system and techician felt it fit better than her mask she brought. When I showed her mask styles, it seems she uses a [employer]wear full face mask medium and was given a F&P full face mask small. She has not tried the new mask yet at home to see if same itching etc. Her manual titration study was rescheduled due to shingles in January. Sleep Study - Results Polysomnography/Home Sleep Study results: The quality of the study is good. CPAP was initiated at 4 cmH2O and titrated up to BiPAP at 24/20 cmH2O. CPAP at 14 cmH2O appeared to be optimal (AHI of 2.7 per hour on the pressure). There was supine sleep on the pressure. Oxygen saturation was mildly low due to the frequent ro residual respiratory events on lower CPAP settings. The patient appeared to have some difficulty tolerating positive airway pressure therapy. The patients sleep efficiency was reduced due to frequent and prolonged awakenings after the sleep onset. The sleep architecture was abnormal for sleep fragmentation and reduced amount of time spent in REM and slow wave sleep (N3). There was no significant periodic leg movement of sleep.. Cardiac rhythm was normal sinus rhythm without significant arrhythmia. No abnormal behavior (parasomnia) observed during the night. CPAP Compliance Data - Data Reviewed with Patient Average duration of nightly device use: 6H 18M Compliance rate %: 43.3 Current pressure setting (cmH2O): 4-15 Humidity settin Heated hose settin Average residual AHI: 7.6 Average large leak: 4m 27s Subjective Patient concerns: reports: mask leak noise (a couple times a night), dry mouth, nose, throat (dry mouth most nights), other (rash). denies: aerophagia, mask discomfort, air blowing in eyes, condensation in mask/hose, nasal congestion, epistaxis Observed to snore while using device: No Current pressure setting perceived as: comfortable On therapy, patient: reports: sleeping better, awakening more refreshed, being more awake and alert during the day, more rested overall. denies: drowsiness while driving Initial [place] Sleepiness Scale score: 9 Current [place] Sleepiness Scale score: 5 Allergies and Home Medications Known drug allergies: No Home medication list reviewed: Yes (no changes ) Review of Systems Review of systems same as previous: No (Shingles in November - left arm and hand, given medication with relief) Physical Exam Blood Pressure: 140/70 Cuff size: regular Heart Rate: 81 O2 Saturation: 97 Height: 5 ft Weight: 210 lb 9.6 oz (with boots ) Weight change since last visit: gained 13 pounds Body Mass Index: 41.1 BMI Classification: Obesity Class 3 Impression and Plan 1. Obstructive Sleep Apnea-Hypopnea Syndrome,severe, with fair treatment compliance and slightly elevated residual AHI. On CPAP therapy, the patient has better sleep quality and is more rested overall. Compliance was reduced due to difficulty with electrical access during travel to [facility] to see family. After review of her titration study results, hypnogragm and charts, I will change her autoCPAP pressure to [id number] as this was optimal treatment pressure range noted on titration study and where she seems to sleep the most. This pressure change should reduce residual. Patient advised to contact me if the pressure change is uncomfortable so it can be adjusted. It is unclear cause of her skin itching of her upper chest but could be from vent blowing down to her chest in sleep. Patient is to start new mask to see if better fit and less mask leaks to awaken her. She can also follow up with PCP for further evaluation if not resolved. For oral dryness, I showed her how to reduce heated hose and adjust humidity higher as needed. Printed instructions given with rationale for why to adjust settings. Patient's apnea severity and rationale for treatment to reduce apnea, improve sleep quality and reduce cardiovascular and cerebrovascular events was reviewed. I also reviewed the benefit of consistent device use of CPAP for her hypertension. Compliance guidelines reviewed. * Change autoCPAP pressure to 14-16 cmH2O * Adjust humidity and heated hose. * Use CPAP with all sleep * Notify me if snoring with mask or feeling that the pressure is too much or too little * Attempt to lose weight * Call this office if any problems using CPAP * Return for follow up before compliance date , or sooner if concerns arise Time Spent with Patient (minutes): 40 I spent 100% of this visit face to face with the patient with greater than 50% of this was spent time counseling the patient and coordination of care.
[2019-04-18 18:30] VITALS: BP 140/70
== END 2019-04-11 12:48 | disposition home or self-care (01) ==
LOC: SC 12:47
PROVIDERS: ATTEND Nurse Practitioner Family
DX: G47.33 Obstructive sleep apnea (adult) (pediatric) (principal); E66.9 Obesity, unspecified; Z68.41 Body mass index [BMI] 40.0-44.9, adult
CPT/HCPCS: 99215; G0463; 99212

== ENCOUNTER 2019-08-31 08:47 | Outpatient (CLI) | payer MEDICARE, OTHER ==
[2019-08-31 09:41] VITALS: BP 130/80
--- NOTE | 2019-08-31 09:41 | SLEEP CARE CONSULTATION ---
Information from patient questionnaire entered by Bonita Baldwin. I have reviewed and concur with the information entered by Bonita Baldwin. This document represents the service I personally performed and the decisions made by me, Carley Schneider, RN, MSN, WORKERS COMPENSATION CLAIMS ANALYST. History of Present Illness Service Date and Time: 08/31/2019 0847 Previous diagnosis: Severe, Obstructive Sleep Apnea-Hypopnea Syndrome AHI: 42.3 (in 2019) Reason for follow up: other (4 month with pressure change) Equipment type: CPAP Equipment obtained from: [employer] (obtained one shipment of supplies only none for months.) Mask style: Full face Mask brand: Respironics (Dreamwear) Backup mask available: No (has frame to F&P mask and headgear only ) Last cushion change: months - last year Prior sleep studies: Yes [facility] Type of Sleep Study: Polysomnography CPAP Compliance Data - Data Reviewed with Patient Average duration of nightly device use: 6 hours Compliance rate %: 82.2 Current pressure setting (cmH2O): 14-16 Humidity settin Heated hose settin Average residual AHI: 3.0 (90% pressure 15.7cmH20) Average large leak: 30 seconds Subjective Missed days of use due to: reports: other (when ran out of distilled water) Patient concerns: reports: dry mouth, nose, throat (dry mouth occasionally maybe a couple times a month). denies: aerophagia, mask discomfort, air blowing in eyes, mask leak noise, condensation in mask/hose, nasal congestion, epistaxis, other Observed to snore while using device: No (single ) Current pressure setting perceived as: comfortable On therapy, patient: reports: sleeping better (no nocturia ), other (she did not feel tired before CPAP use. ). denies: drowsiness while driving Initial [place] Sleepiness Scale score: 9 (in 2019) Allergies and Home Medications Known drug allergies: No Home medication list reviewed: No (no changes stated) Review of Systems Review of systems same as previous: Yes (except weight gain ) Physical Exam Blood Pressure: 130/80 Cuff size: large Heart Rate: 62 O2 Saturation: 96 Height: 5 ft Weight: 225 lb Body Mass Index: 43.9 BMI Classification: Morbidly Obese Impression and Plan 1. Obstructive Sleep Apnea-Hypopnea Syndrome, severe, with good treatment compliance and good apnea control. The change in pressure reduced residual AHI to normal. On CPAP therapy, the patient has better sleep quality due to no nocturia but is no more rested. However, she was not tired before CPAP. If oral dryness increases in frequency She can either raise humidity setting or she can lower the heated hose. She states she will try lowering the heated after discussion of rationale for changing settings. If runs out of distilled water, she can turn off humidity and use saline nasal spray for moisture so does not miss using CPAP with rationale explained. For supply concerns, she is to contact [employer] for supply reminder system to be put in place. Patient has gained weight. Currently patients BMI is 43.9 obesity class . Morbid Obesity increases the risk of apnea, CPAP pressure requirements and overall health risks especially cardiovascular and diabetes. Thus patient is advised to lose weight. Weight loss can be done with reducing portion size, reducing refined foods and balancing content with vegetables, fruit and protein. In addition tracking food intake will allow awareness of how to modify diet to achieve weight loss goals. Also eating more slowly will allow more awareness of food intake and enjoyment of food while assisting patient to modify intake at each meal. A diet consultation can be helpful in achieving optimal weight loss goals. The BMI chart was reviewed. The patient would like to reduce to 150 pounds bringing their BMI down significantly. Patient encouraged to discuss their weight loss goals with their PCP and consider a referral to a director corporate sales.The patient's CPAP pressure range should accommodate some weight loss. Symptoms to report for additional pressure adjustment discussed. Patient's apnea severity and rationale for treatment to reduce apnea, improve sleep quality and reduce cardiovascular and cerebrovascular events was reviewed. * Continue auto CPAP pressure at 14-16 cmH2O * Implement methods to reduce oral dryness. * Notify me if snoring with mask or feeling that the pressure is too much or too little * Attempt to lose weight * Call this office if any problems using CPAP * Return for follow up in 6 months, or sooner if concerns arise Visit Type: In Office Time Spent with Patient (minutes): 30 Provider Statement: I spent 100% of the Face to Face Visit with the patient with greater than 50% spent counseling the patient and coordination of care.
== END 2019-08-31 08:48 | disposition home or self-care (01) ==
LOC: SC 08:47
PROVIDERS: ATTEND Nurse Practitioner Family
DX: G47.33 Obstructive sleep apnea (adult) (pediatric) (principal); E66.01 Morbid (severe) obesity due to excess calories; Z68.41 Body mass index [BMI] 40.0-44.9, adult
CPT/HCPCS: 99214; G0463; 99212

== ENCOUNTER 2020-03-14 10:52 | Outpatient (CLI) | payer MEDICARE, OTHER ==
--- NOTE | 2020-03-14 11:28 | SLEEP CARE CONSULTATION ---
Information from patient questionnaire entered by Bonita Baldwin. I have reviewed and concur with the information entered by Bonita Baldwin. This document represents the service I personally performed and the decisions made by , Yoselin Alvarado ARNP. History of Present Illness Service Date and Time: 03/14/2020 1052 Previous diagnosis: Severe, Obstructive Sleep Apnea-Hypopnea Syndrome AHI: 42.3 (in 2019) Reason for follow up: six month Equipment type: CPAP Equipment obtained from: [employer] (getting supplies as needed) Mask style: Full face Mask brand: Respironics Backup mask available: Yes (other) Last cushion change: 2 months Prior sleep studies: Yes Year and Where: 2019 - [facility] Sleep HPI additional information: JEVON PATTERSON was diagnosed to have severe, AHI 42.3, obstructive sleep apnea- hypopnea syndrome and returned today for CPAP therapy six month follow-up. CPAP Compliance Data - Data Reviewed with Patient Average duration of nightly device use: 3 hours 33 mins Compliance rate %: 48.3 Current pressure setting (cmH2O): 14-16 Humidity settin Heated hose settin Average residual AHI: 7.1 Central apnea: 0.6 Obstructive apnea: 3.0 Hypopnea: 3.5 Average large leak: 1 hour 17 mins Subjective Missed days of use due to: reports: travel (for 49 anniversary), other (Painting and decorating bedroom) Patient concerns: reports: mask leak noise, dry mouth, nose, throat (dry mouth). denies: aerophagia, mask discomfort, air blowing in eyes, condensation in mask/hose, nasal congestion, epistaxis, other Observed to snore while using device: No Current pressure setting perceived as: comfortable On therapy, patient: reports: sleeping better, awakening more refreshed, being more awake and alert during the day, more rested overall. denies: drowsiness while driving Initial [place] Sleepiness Scale score: 9 (in 2019) Current [place] Sleepiness Scale score: 4 Allergies and Home Medications Drug allergies reviewed: Yes (NKDA) Home medication list reviewed: Yes (no changes) Review of Systems Review of systems same as previous: Yes (no changes) Physical Exam Heart Rate: 63 O2 Saturation: 98 Height: 5 ft Weight: 199 lb Weight change since last visit: 26 Body Mass Index: 38.8 BMI Classification: Obese Impression and Plan 1. Obstructive Sleep Apnea-Hypopnea Syndrome, severe, with poor treatment compliance and fair apnea control with mild elevation of residual AHI. On CPAP therapy, the patient has better sleep quality and is more rested overall. She missed a lot of days due to traveling for her anniversary and she did not take the CPAP machine with her. She also was redoing a bedroom and did not use the machine for 2 weeks. I advised her to use the CPAP every night to get the most benefit from her therapy and to take it when she travels. She voiced understanding. The patients pressure will be changed to autoCPAP 14-20 cmH20 for elevation of residual AHI. Patient advised to contact me if pressure change is uncomfortable so that it can be adjusted. Goals for apnea control discussed. She has also had some issues with mask leak noises that reduce/resolve with mask adjustment. She sometimes gets a dry mouth. I reviewed with her that her oral dryness can be reduced by adjusting humidity setting higher or heated hose lower or by adjusting both settings. Oral dryness can also be reduced by reducing mask leaks. Patient's apnea severity and rationale for treatment to reduce apnea, improve sleep quality and reduce cardiovascular and cerebrovascular events was reviewed. Patient has lost 26 pounds since her last visit. I encouraged her to continue her weight loss as this will benefit her overall health. I also reviewed the benefit of consistent device use of CPAP for hypertension. * Change autoCPAP pressure to 14-20 cmH2O * Notify me if snoring with mask or feeling that the pressure is too much or too little * Continue to try to lose weight * Call this office if any problems using CPAP * Return for follow up in 1-2 months, or sooner if concerns arise Counseling Topics: Spare mask, Weight loss health impact Visit Type: In Office Time Spent with Patient (minutes): 17 Provider Statement: I spent 100% of the Face to Face Visit with the patient with greater than 50% spent counseling the patient and coordination of care.
--- OUTSIDE RECORDS SUMMARY | 2020-03-20 01:07 | EXTERNAL MEDICAL SUMMARY RPT | Continuity of Care Document ---
:1950 Demographics Phone Unavailable Preferred Language Unknown Marital Status Unknown Restorationism Affiliation Unknown Race Unknown Ethnic Group Unknown Author Organization [facility] Address [address] [phone] Phone Care Team Providers Name Role Phone Holiday Unavailable Unavailable Allergies date description facility DIPHENHYDRAMINE HCL Located within [facility] TR[facility]ADOL [facility] No Known Drug Allergies [facility] Social History date description facility [phone]
== END 2020-03-14 10:53 | disposition home or self-care (01) ==
LOC: SC 10:52
PROVIDERS: ATTEND Nurse Practitioner Family
DX: G47.33 Obstructive sleep apnea (adult) (pediatric) (principal); E66.9 Obesity, unspecified; Z68.38 Body mass index [BMI] 38.0-38.9, adult
CPT/HCPCS: 99213; G0463; 99212

== ENCOUNTER 2020-04-30 10:47 | Outpatient (CLI) | payer MEDICARE, OTHER ==
--- NOTE | 2020-04-30 11:31 | SLEEP CARE CONSULTATION ---
Information from patient questionnaire entered by Bonita Baldwin. I have reviewed and concur with the information entered by Bonita Baldwin. This document represents the service I personally performed and the decisions made by , Yoselin Alvarado ARNP. History of Present Illness Service Date and Time: 04/30/2020 1047 Previous diagnosis: Severe, Obstructive Sleep Apnea-Hypopnea Syndrome AHI: 42.3 (in 2019) Reason for follow up: other (6 week with pressure change) Equipment type: CPAP Equipment obtained from: [employer] (getting supplies) Mask style: Full face Backup mask available: Yes (other mask) Last cushion change: 3 months Prior sleep studies: Yes Year and Where: 2019 - [facility] Sleep HPI additional information: JEVON PATTERSON was diagnosed to have severe, AHI 42.3, obstructive sleep apnea- hypopnea syndrome and returned today for CPAP therapy 6 week pressure change follow-up. CPAP Compliance Data - Data Reviewed with Patient Average duration of nightly device use: 7 hr 24 min Compliance rate %: 70 Current pressure setting (cmH2O): 14-20 Humidity settin Heated hose settin Average residual AHI: 3.4 Average large leak: 1 hr 42 min Subjective Missed days of use due to: reports: travel, other (forgot to get water or clean machine) Patient concerns: reports: mask leak noise (from changing sleeping position), dry mouth, nose, throat (improved with decreasing the heated hose). denies: aerophagia, mask discomfort, air blowing in eyes, condensation in mask/hose, nasal congestion, epistaxis, other Observed to snore while using device: No Current pressure setting perceived as: comfortable On therapy, patient: reports: sleeping better, awakening more refreshed, being more awake and alert during the day, more rested overall. denies: drowsiness while driving Initial [place] Sleepiness Scale score: 9 (in 2019) Current [place] Sleepiness Scale score: 5 Allergies and Home Medications Drug allergies reviewed: Yes (NKDA) Home medication list reviewed: Yes (no changes) Review of Systems Review of systems same as previous: Yes (no changes) Physical Exam Heart Rate: 57 O2 Saturation: 97 Height: 5 ft Weight: 201 lb 12.8 oz Body Mass Index: 39.4 BMI Classification: Obese Impression and Plan 1. Obstructive Sleep Apnea-Hypopnea Syndrome, severe, with fair treatment compliance and good apnea control. On CPAP therapy, the patient has better sleep quality and is more rested overall. She states she is an active sleeper and is constantly changing positions during the night. She does get some mask leak noises when she changes positions that is resolved with repositioning of mask. She decreased the temperature on the heated hose and she no longer has as much issue with the oral dryness. I reinforced that she can increase the humidity if she starts to get more dry mouth. She is tolerating the current pressure range with good control of her apnea and she has brought her compliance up to 70%. I encouraged her to continue to keep her compliance up and she may follow up next year. She voiced understanding. Patient's apnea severity and rationale for treatment to reduce apnea, improve sleep quality and reduce cardiovascular and cerebrovascular events was reviewed. I also reviewed the benefit of consistent device use of CPAP for hypertension. * Continue auto CPAP pressure at 14-20 cmH2O * Notify me if snoring with mask or feeling that the pressure is too much or too little * Attempt to lose weight * Call this office if any problems using CPAP * Return for follow up in 1 year, or sooner if concerns arise Counseling Topics: Spare mask, Weight loss health impact Visit Type: In Office Time Spent with Patient (minutes): 20 Provider Statement: I spent 100% of the Face to Face Visit with the patient with greater than 50% spent counseling the patient and coordination of care.
== END 2020-04-30 10:48 | disposition home or self-care (01) ==
LOC: SC 10:47
PROVIDERS: ATTEND Nurse Practitioner Family
DX: G47.33 Obstructive sleep apnea (adult) (pediatric) (principal); E66.9 Obesity, unspecified; Z68.39 Body mass index [BMI] 39.0-39.9, adult
CPT/HCPCS: 99213; G0463; 99212

== ENCOUNTER 2020-07-08 08:00 | Outpatient (CLI) | payer MEDICARE, OTHER ==
[2020-07-08 12:17] LABS: BASOPHILS % (AUTO) 0.9 %; EOSINOPHILS # (AUTO) 0.2 10^3/uL (0.0-0.7); HCT - HEMATOCRIT 42.5 % (37.0-47.0); HGB - HEMOGLOBIN 13.6 g/dL (12.0-16.0); LYMPHOCYTES # (AUTO) 1.3 10^3/uL (1.5-3.5); LYMPHOCYTES % (AUTO) 29.2 %; MEAN CORPUSCULAR HEMOGLOBIN 28.3 pg (27.0-31.0); MEAN CORPUSCULAR VOLUME 88.4 fL (81.0-99.0); MEAN PLATELET VOLUME 10.4 fL (7.9-10.8); MONOCYTES # (AUTO) 0.4 10^3/uL (0.0-1.0); MONOCYTES % (AUTO) 8.6 %; NEUTROPHILS # (AUTO) 2.6 10^3/uL (1.5-6.6); NEUTROPHILS % (AUTO) 55.9 %; PLT - PLATELET COUNT 260 10^3/uL (130-450); RED BLOOD COUNT 4.81 10^6/uL (4.20-5.40); RED CELL DISTRIBUTION WIDTH 14.1 % (12.0-15.0); WHITE BLOOD COUNT 4.6 x10^3/uL (4.8-10.8)
[2020-07-08 12:20] LABS: ALBUMIN 4.1 g/dL (3.2-5.5); ALBUMIN/GLOBULIN RATIO 1.2 (1.0-2.2); ALKALINE PHOSPHATASE 79 IU/L (42-121); ALT ALANINE AMINOTRANSFERASE 21 IU/L (10-60); AST ASPARTATE AMINOTRANSFERASE 23 IU/L (10-42); BILIRUBIN,TOTAL 0.8 mg/dL (0.2-1.0); BUN - BLOOD UREA NITROGEN 12 mg/dL (6-20); CALCIUM 9.6 mg/dL (8.5-10.3); CARBON DIOXIDE - CO2 32 mmol/L (21-32); CHLORIDE 104 mmol/L (101-111); CHOL/HDL RATIO 3.1 (<4.4); CHOLESTEROL 216 mg/dL; CREATININE 0.5 mg/dL (0.4-1.0); GFR - MDRD 122 (>89); GLUCOSE 100 mg/dL (70-100); HDL CHOLESTEROL 70 mg/dL; LDL CHOLESTEROL,CALCULATED 135 mg/dL; LDL/HDL RATIO 1.9 (<4.4); POTASSIUM 4.1 mmol/L (3.5-5.0); SODIUM 144 mmol/L (135-145); TOTAL PROTEIN 7.4 g/dL (6.7-8.2); TRIGLYCERIDES 54 mg/dL; VLDL CHOLESTEROL 11 mg/dL
== END 2020-07-08 23:59 | disposition home or self-care (01) ==
LOC: LAB.WCP 08:00
PROVIDERS: ATTEND Physician Assistant Medical
DX: I10 Essential (primary) hypertension (principal)
CPT/HCPCS: 36415; 80053; 80061; 83721; 85025

== ENCOUNTER 2020-08-08 09:18 | Outpatient (CLI) | payer MEDICARE, OTHER ==
--- NOTE | 2020-08-09 11:57 | Mammography Report ---
BILATERAL DIGITAL SCREENING MAMMOGRAM 3D/2D: 08/08/2020 CLINICAL: Routine screening. Comparison is made to exams dated: 11/28/2018 mammogram, 11/29/2015 mammogram, 10/22/2014 mammogram, an d 04/04/2013 mammogram - [facility]. There are scattered fibroglandular elements in both breasts. No significant masses, calcifications, or other findings are seen in either breast. There has been no significant interval change. IMPRESSION: NEGATIVE There is no mammographic evidence of malignancy. A 1 year screening mammogram is recommended. This exam was interpreted at Station ID: [id number]. NOTE: For mammograms, a report in lay terms will be sent to the patient. Approximately 15% of breast malignancies will not be visualized mammographically. In the management of a palpable breast mass, a negative mammogram must not discourage biopsy of a clinically suspicious lesion. Electronically Signed By: Gillian moore/penrad:08/08/2020 10:39:14 ACR BI-RADS Category 1: Negative 3341F PARENCHYMAL PATTERN: (A) - The breast(s) demonstrate(s) scattered fibroglandular densities. BI-RADS CATEGORY: (1) - 1 RECOMMENDATION: (ANNUAL) - Recommend routine annual screening mammography. [id number] 1 year screening LATERALITY: (B)
== END 2020-08-08 09:19 | disposition home or self-care (01) ==
LOC: DI 09:18
PROVIDERS: ATTEND Family Medicine
DX: Z12.31 Encounter for screening mammogram for malignant neoplasm of breast (principal)

== ENCOUNTER 2020-09-26 15:30 | Outpatient (CLI) | payer MEDICARE, OTHER ==
--- NOTE | 2020-09-26 17:30 | XRAY Report ---
PROCEDURE: Knee 3 View LT INDICATIONS: PATELLO-FEMORAL SYNDROME TECHNIQUE: 3 views of the left knee(s) were acquired. COMPARISON: None. FINDINGS: Bones: No fractures or dislocations. No suspicious bony lesions. Tricompartmental osteophytosis. Soft tissues: Trace suprapatellar joint effusion. No suspicious soft tissue calcifications. IMPRESSION: 1. Trace nonspecific joint effusion. 2. Mild tricompartmental osteophytosis. Reviewed by: Leslie Stephens MD, PhD on 09/26/2020 5:29 PM PDT Approved by: Leslie Stephens MD, PhD on 09/26/2020 5:29 PM PDT Station ID: [id number]
== END 2020-09-26 15:31 | disposition home or self-care (01) ==
LOC: DI.N 15:30
PROVIDERS: ATTEND Family Medicine
DX: M17.12 Unilateral primary osteoarthritis, left knee (principal); M25.462 Effusion, left knee

== ENCOUNTER 2020-12-27 09:39 | Outpatient (CLI) | payer MEDICARE, OTHER ==
--- NOTE | 2020-12-27 10:41 | XRAY Report ---
PROCEDURE: Hips 2V BILAT INDICATIONS: RIGHT HIP PAIN TECHNIQUE: AP view of the pelvis and frog-leg lateral views of the bilateral hips were acquired. COMPARISON: Reference is made to the CT pelvis dated March 02, 2018. FINDINGS: BONES/JOINTS: No acute, displaced fracture. Mild contour irregularity, osteophytosis, and joint space loss of the right hip. No widening of the pubic symphysis. The sacroiliac joints are symmetric. The femoral heads are normal ly seated within the acetabulum. SOFT TISSUES: No focal abnormality. IMPRESSION: 1.No acute osseous abnormality. Reviewed by: Sher Fajardo MD on 12/27/2020 10:40 AM PDT Approved by: Sher Fajardo MD on 12/27/2020 10:40 AM PDT Station ID: [id number]
== END 2020-12-27 09:40 | disposition home or self-care (01) ==
LOC: DI.N 09:39
PROVIDERS: ATTEND Family Medicine
DX: M25.551 Pain in right hip (principal)

== ENCOUNTER 2023-05-06 08:00 | Outpatient (CLI) | payer MEDICARE, OTHER | END 2023-05-06 08:01 | disposition home or self-care (01) | LOC: LAB.N 08:00 | PROVIDERS: ATTEND Family Medicine | DX: J06.9 Acute upper respiratory infection, unspecified (principal) ==

== ENCOUNTER 2023-05-06 10:45 | Outpatient (CLI) | payer MEDICARE, OTHER ==
--- NOTE | 2023-05-06 12:02 | XRAY Report ---
PROCEDURE: Chest 2V INDICATIONS: COUGH TECHNIQUE: 2 views of the chest were acquired. COMPARISON: Chest radiograph on January 10, 2019. FINDINGS: Surgical changes and devices: None. Lungs and pleura: No pleural effusions or pneumothorax. Lungs are clear. Mediastinum: Mediastinal contours appear normal. Heart size is normal. Bones and chest wall: No suspicious bony lesions. Overlying soft tissues appear unremarkable. Degen erative changes of the spine. IMPRESSION: No acute cardiopulmonary process. Reviewed by: Laurie Pacheco MD on 05/06/2023 12:01 PM PST Approved by: Laurie Pacheco MD on 05/06/2023 12:01 PM PST Station ID: [id number]
== END 2023-05-06 11:00 | disposition home or self-care (01) ==
LOC: DI.N 10:45
PROVIDERS: ATTEND Family Medicine
DX: R05.9 Cough, unspecified (principal)

== ENCOUNTER 2023-07-19 12:29 | Outpatient (CLI) | payer MEDICARE, OTHER ==
[2023-07-19 17:48] LABS: BASOPHILS # (AUTO) 0.1 10^3/uL (0.0-0.1); EOSINOPHILS # (AUTO) 0.2 10^3/uL (0.0-0.7); EOSINOPHILS % (AUTO) 3.6 %; HCT - HEMATOCRIT 42.1 % (37.0-47.0); HGB - HEMOGLOBIN 12.9 g/dL (12.0-16.0); LYMPHOCYTES # (AUTO) 1.7 10^3/uL (1.5-3.5); LYMPHOCYTES % (AUTO) 34.2 %; MEAN CORPUSCULAR HEMOGLOBIN 27.2 pg (27.0-31.0); MEAN CORPUSCULAR HGB CONC 30.6 g/dL (32.0-36.0); MEAN CORPUSCULAR VOLUME 88.8 fL (81.0-99.0); MEAN PLATELET VOLUME 10.5 fL (7.9-10.8); MONOCYTES # (AUTO) 0.4 10^3/uL (0.0-1.0); MONOCYTES % (AUTO) 8.7 %; NEUTROPHILS # (AUTO) 2.6 10^3/uL (1.5-6.6); NEUTROPHILS % (AUTO) 52.3 %; PLT - PLATELET COUNT 291 10^3/uL (130-450); RED BLOOD COUNT 4.74 10^6/uL (4.20-5.40); RED CELL DISTRIBUTION WIDTH 14.4 % (12.0-15.0); WHITE BLOOD COUNT 4.9 x10^3/uL (4.8-10.8)
[2023-07-19 18:15] LABS: ALBUMIN 4.1 g/dL (3.2-5.5); ALBUMIN/GLOBULIN RATIO 1.2 (1.0-2.2); ALKALINE PHOSPHATASE 79 IU/L (42-121); ALT ALANINE AMINOTRANSFERASE 13 IU/L (10-60); AST ASPARTATE AMINOTRANSFERASE 22 IU/L (10-42); BILIRUBIN,TOTAL 0.6 mg/dL (0.2-1.0); BUN - BLOOD UREA NITROGEN 12 mg/dL (6-20); CALCIUM 9.6 mg/dL (8.5-10.3); CARBON DIOXIDE - CO2 32 mmol/L (21-32); CHLORIDE 104 mmol/L (101-111); CHOLESTEROL 202 mg/dL; CREATININE 0.6 mg/dL (0.6-1.3); GFR - MDRD 98 (>89); GLUCOSE 87 mg/dL (74-104); HDL CHOLESTEROL 68 mg/dL; LDL CHOLESTEROL,CALCULATED 117 mg/dL; LDL/HDL RATIO 1.7 (<4.4); POTASSIUM 3.7 mmol/L (3.5-4.5); SODIUM 142 mmol/L (135-145); TOTAL PROTEIN 7.4 g/dL (6.4-8.9); TRIGLYCERIDES 83 mg/dL (48-352); VLDL CHOLESTEROL 17 mg/dL
== END 2023-07-19 12:30 | disposition home or self-care (01) ==
LOC: LAB.N 12:29
PROVIDERS: ATTEND Physician Assistant Medical
DX: I10 Essential (primary) hypertension (principal)
CPT/HCPCS: 36415; 80053; 80061; 83721; 85025

== ENCOUNTER 2023-07-28 10:14 | Outpatient (CLI) | payer MEDICARE, OTHER ==
--- NOTE | 2023-07-29 09:34 | Mammography Report ---
BILATERAL DIGITAL SCREENING MAMMOGRAM 3D/2D: 07/28/2023 CLINICAL: Routine screening. Family history of breast cancer. Comparison is made to exams dated: 08/08/2020 mammogram, 11/28/2018 mammogram, 11/29/2015 mammogram, 10/06 mammogram, and 04/04/2013 mammogram - [facility]. There are scattered areas of fibroglandular density in both breasts (category b / 25%-50% glandular t issue). No significant masses, calcifications, or other findings are seen in either breast. There has been no significant interval change. IMPRESSION: NEGATIVE There is no mammographic evidence of malignancy. A 1 year screening mammogram is recommended. Based on the Tyrer Cuzick model (a risk assessment model) the patient's lifetime risk is 6.7% and her 10 year risk is 6.0%. According to the ACR, ACS, and NCCN guidelines, an annual breast MRI exam gabrielle g with mammogram is recommended if the patient's lifetime risk is 20% or greater. This exam was interpreted at Station ID: [id number]. NOTE: For mammograms, a report in lay terms will be sent to the patient. Approximately 15% of breast malignancies will not be visualized mammographically. In the management of a palpable breast mass, a negative mammogram must not discourage biopsy of a clinically suspicious lesion. Electronically Signed By: Elsi Tovar M.D., Ph.D. /chip:07/28/2023 13:40:26 letter sent: No_Letter ACR BI-RADS Category 1: Negative 3341F PARENCHYMAL PATTERN: (A) - The breast(s) demonstrate(s) scattered fibroglandular densities. BI-RADS CATEGORY: (1) - 1 RECOMMENDATION: (ANNUAL) - Recommend routine annual screening mammography. [id number] 1 year screening LATERALITY: (B)
== END 2023-07-28 10:15 | disposition home or self-care (01) ==
LOC: DI.N 10:14
DX: Z12.31 Encounter for screening mammogram for malignant neoplasm of breast (principal); Z80.3 Family history of malignant neoplasm of breast; R92.323 Mammographic fibroglandular density, bilateral breasts

== ENCOUNTER 2023-08-10 13:36 | Outpatient (CLI) | payer MEDICARE, OTHER ==
--- NOTE | 2023-08-12 07:38 | DEXA Report ---
PROCEDURE: Dexa Spine and/or Hip INDICATIONS: POST MENOPAUSAL TECHNIQUE: Dual energy x-ray absorptiometry (DXA) was performed on a [employer] System. Regions measur ed are the AP Spine, femoral neck, and if needed forearm. COMPARISON: None FINDINGS: Lumbar Spine: Bone Mineral Density: 1.242 g/cm/cm,T score: 0.5. Left Femoral Neck: Bone Mineral Density: 0.781 g/cm/cm, T score: -1.9. Left Hip: Bone Mineral Density: 0.764 g/cm/cm,T score: -1.9. (T score greater or equal to -1.0: NORMAL) (T score from -1.1 to -2.4: OSTEOPENIA) (T score less than or equal to -2.5 to: OSTEOPOROSIS) Impression: By WHO criteria, this patient has low bone density (osteopenia). Patients with diagnosis of osteoporosis or osteopenia should have regular bone mineral density assess ment. For those eligible for Medicare, routine testing is allowed once every 2 years. Testing frequ ency can be increased for patients who have rapidly progressing disease or for those who are receivin g medical therapy to restore bone mass. Reviewed by: Elsi Tovar MD, PhD on 08/12/2023 7:36 AM PDT Approved by: Elis Tovar MD, PhD on 08/12/2023 7:36 AM PDT Station ID: [id number]
== END 2023-08-10 13:37 | disposition home or self-care (01) ==
LOC: DI 13:36
PROVIDERS: ATTEND Physician Assistant Medical
DX: M85.89 Other specified disorders of bone density and structure, multiple sites (principal); Z78.0 Asymptomatic menopausal state